=== PATIENT | male | born 1940 | race Caucasian/White ===

== ENCOUNTER 2016-10-09 09:49 | Day surgery (SDC) | payer MEDICARE, OTHER ==
[~2016-10-09] VITALS: Ht 175.3 cm; Wt 90.9 kg
[~2016-10-09 09:49] MED LIST: ATOR20TA PO; CALC1TAB PO; CARB1TAB20 PO; CYAN10009 PO; DROX300C PO; ESCI10TA47 PO; FINA5TAB2 PO; FURO20TA4 PO; METO50TA9 PO; OMEP20CA10 PO; OXYC1TAB11 PO; POTA-81 PO; RIVA20TA PO
--- OUTSIDE RECORDS SUMMARY | 2016-10-09 09:53 | XMS REPORT | Referral Summary ---
Author Author [facility] Organization [facility] Address Unknown Phone Unavailable Care Team Providers Care Survey Operations Director Name Role Phone Keesha Brooks Primary Care Physician [phone] Encounter [facility] [id number] Date(s): 08/23/16 - 08/23/16 [facility] [address] [place] [address] Discharge Diagnosis: Syncope, vasovagal Discharge Diagnosis: Syncope/Near syncope Discharge Disposition: 01-Home or Self Care Attending Physician: Rudy Chan MD Admitting Physician: Rudy Chan MD Vital Signs Most recent to 1 oldest [Reference Range]: Temperature Oral 36.9 degC [35.8-37.3 degC] (08/23/16 1:55 PM) Peripheral Pulse 88 bpm Rate [60-100 bpm] (08/23/16 3:57 PM) Respiratory Rate 19 br/min [14-20 br/min] (08/23/16 3:57 PM) Blood Pressure 133/82 mmHg [90-140/60-90 mmHg] (08/23/16 3:57 PM) SpO2 97 % (08/23/16 1:55 PM) Problem List No data available for this section Allergies, Adverse Reactions, Alerts No data available for this section Medications Caltrate mg, Oral, Daily, 0 Refill(s) Start Date: 08/23/16 Status: Ordered escitalopram Oral, Daily, 0 Refill(s) Start Date: 08/23/16 Status: Ordered ibuprofen 0 Refill(s) Start Date: 08/23/16 Status: Ordered Lasix Daily, 0 Refill(s) Start Date: 08/23/16 Status: Ordered levodopa 0 Refill(s) Start Date: 08/23/16 Status: Ordered Lipitor Oral, Daily, 0 Refill(s) Start Date: 08/23/16 Status: Ordered omeprazole Oral, Daily, 0 Refill(s) Start Date: 08/23/16 Status: Ordered Percocet 10/325 oral tablet 1 tabs, Oral, q6hr, as needed for pain, # 10 tabs, 0 Refill(s) Start Date: 08/23/16 Status: Ordered potassium acetate 0 Refill(s) Start Date: 08/23/16 Status: Ordered Proscar mg, Oral, Daily, 0 Refill(s) Start Date: 08/23/16 Status: Ordered Toprol-XL Oral, Daily, 0 Refill(s) Start Date: 08/23/16 Status: Ordered Xarelto Oral, 0 Refill(s) Start Date: 08/23/16 Status: Ordered Results Hematology Most recent to 1 oldest [Reference Range]: WBC [4.8-10.8 8.4 10*3/uL 10*3/uL] (08/23/16 2:44 PM) RBC [4.60-6.20] 3.60 *LOW* (08/23/16 2:44 PM) Hgb [14.0-18.0 11.1 gm/dL gm/dL] *LOW* (08/23/16 2:44 PM) Hct [42.0-52.0 %] 34.9 % *LOW* (08/23/16 2:44 PM) MCV [82.0-99.0 fL] 96.9 fL (08/23/16 2:44 PM) MCH [27.0-32.0 pg] 30.8 pg (08/23/16 2:44 PM) MCHC [32.0-36.0 31.8 gm/dL gm/dL] *LOW* (08/23/16 2:44 PM) RDW [11.5-14.5 %] 13.5 % (08/23/16 2:44 PM) Platelet [150-400 253 10*3/uL 10*3/uL] (08/23/16 2:44 PM) MPV [9.4-12.3 fL] 9.3 fL *LOW* (08/23/16 2:44 PM) Immature 0.2 % Granulocytes (08/23/16 2:44 PM) [0.0-1.0 %] Neutrophils [51-75 76 % %] *HI* (08/23/16 2:44 PM) Lymphocytes [20-46 11 % %] *LOW* (08/23/16 2:44 PM) Monocytes [4-11 %] 11 % (08/23/16 2:44 PM) Eosinophils [0-4 %] 1 % (08/23/16 2:44 PM) Basophils [0-2 %] 0 % (08/23/16 2:44 PM) Neutro Absolute 6.32 [1.90-7.00] (08/23/16 2:44 PM) Lymph Absolute 0.94 [0.80-3.30] (08/23/16 2:44 PM) [place]inn Absolute 0.95 [0.30-1.00] (08/23/16 2:44 PM) Eos Absolute 0.10 [0.00-0.50] (08/23/16 2:44 PM) Baso Absolute 0.03 [0.00-0.20] (08/23/16 2:44 PM) Chemistry Most recent to 1 oldest [Reference Range]: Sodium Lvl [136-144 131 mEq/L mEq/L] *LOW* (08/23/16 2:45 PM) Potassium Lvl 3.7 mEq/L [3.6-5.1 mEq/L] (08/23/16 2:45 PM) Chloride [99-109 97 mEq/L mEq/L] *LOW* (08/23/16 2:45 PM) CO2 [22-32 mEq/L] 23 mEq/L (08/23/16 2:45 PM) AGAP [3-20] 11 (08/23/16 2:45 PM) BUN [4-20 mg/dL] 10 mg/dL (08/23/16 2:45 PM) Glucose Lvl [70-100 92 mg/dL mg/dL] (08/23/16 2:45 PM) Creatinine Lvl 0.84 mg/dL [0.64-1.27 mg/dL] (08/23/16 2:45 PM) eGFR [>60] >60 1 (08/23/16 2:45 PM) Calcium Lvl 8.3 mg/dL [8.6-10.0 mg/dL] *LOW* (08/23/16 2:45 PM) Albumin Lvl [3.5-4.8 3.3 gm/dL gm/dL] *LOW* (08/23/16 2:45 PM) Total Protein 6.1 gm/dL [6.1-7.9 gm/dL] (08/23/16 2:45 PM) Globulin [1.9-4.3 2.8 gm/dL gm/dL] (08/23/16 2:45 PM) ALT [17-63 U/L] 6 U/L *LOW* (08/23/16 2:45 PM) AST [15-41 U/L] 16 U/L (08/23/16 2:45 PM) Alk Phos [26-104 67 U/L U/L] (08/23/16 2:45 PM) Bili Total [0.2-1.2 0.6 mg/dL 2 mg/dL] (08/23/16 2:45 PM) Troponin [<0.06 <0.05 ng/mL ng/mL] (08/23/16 2:45 PM) 1Result Comment: Multiply eGFR results by 1.21 for race. 2Result Comment: Naproxen, specifically the metabolite O-desmethylnaproxen, may cause spurious elevation in Total Bilirubin levels. Immunizations No data available for this section Procedures No data available for this section Social History Social History Type Response Smoking Status Never smoker Assessment and Plan No data available for this section
--- OUTSIDE RECORDS SUMMARY | 2016-10-09 09:53 | XMS REPORT ---
Author Author Prabhakar Brooks [facility] Address [address] 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 Active 35395401 Problem Depression F32.9 Active 70341440 Problem Alcoholism F10.20 Active 6192840 Problem Pain in right shoulder M25.511 Active 99364301 Problem Vitamin B12 deficiency E53.8 Active 482040697 Problem Hypokalemia E87.6 Active 70132936 Problem Chronic pain syndrome G89.4 Active 365597020 Problem Seizure disorder G40.909 Active 404587544 Problem Urinary incontinence, male, stress N39.3 Active 168370203 Problem 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 Active 970221879 Problem Parkinson's disease G20 Active 35145774 Problem GERD without esophagitis K21.9 Active 081859745 Problem Alzheimers disease with late onset G30.1 Active 60515759 Problem Essential hypertension I10 Active 39448402 Problem Dyslipidemia E78.5 Active 474688177 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
--- OUTSIDE RECORDS SUMMARY | 2016-10-09 09:54 | XMS REPORT | Continuity of Care Document ---
Author Author [facility] Organization [facility] Address Unknown Phone Unavailable Support Name Relationship Address Phone JOEY OBANDO MD Caregiver [address] [facility] [address] [place] [address] Unavailable CHILANGO NUNN MD Caregiver Unknown Unavailable LAUREN WEAVER Next Of Kin [address] [place] [address] Insurance Providers Guarantor Gautam Weaver Address [address] [place] [address] Email [email or web address] [email or web address] Medicare Policy Number [id number] Subscriber's Name Gautam Weaver Relationship 18 Self Payer [facility] Medicare [facility] Policy Number [id number] Subscriber's Name FransiscoJackelineGautam D Relationship 18 Self Advance Directives Directive Response Recorded Date/Time Dr Ordered Resuscitation Status Full Code, unverified 09/10/16 2:49pm Resuscitation Documents on File No 09/11/16 10:45am DPOA for Healthcare Only Yes 09/11/16 10:45am Living Will Yes 09/11/16 10:45am Problems No problem information available. Medications Current Home Medications Medication Dose Units Route Directions Days Qty Instructions Start Date Atorvastatin Calcium (Lipitor) 20 Mg Tablet 1 Tab Oral Bedtime Calcium Carbonate/Vitamin D3 (Caltrate 600 + D Tablet) 1 Each Tablet 1 Tab Oral Twice A Day 09/10/16 Carbidopa/Levodopa (Carbidopa-Levodopa 25-100 Tab) 1 Each Tablet 1 Tab Oral Three Times A Day 270 09/10/16 Cyanocobalamin (Vitamin B-12) (Vitamin B-12) 1,000 Mcg Tablet 1 Tab Oral Bedtime 30 Tablet 09/10/16 Droxidopa (Northera) 300 Mg Capsule 1 Tab Oral Three Times A Day 90 09/10/16 Escitalopram Oxalate 10 Mg Tablet 1 Tab Oral Daily 09/10/16 Finasteride (Proscar) 5 Mg Tablet 1 Tab Oral Bedtime 09/10/16 Furosemide 20 Mg Tablet 1 Tab Oral Daily 09/10/16 Metoprolol Succinate (Toprol Xl) 50 Mg Tab.er.24h 1 Tab Oral Daily 09/10/16 Omeprazole 20 Mg Capsule.dr 20 Mg Oral Before Breakfast Take 1 capsule, by mouth, one time a day (before breakfast). 09/10/16 Oxycodone/Acetaminophen (Percocet 7.5-325 Mg Tablet) 7.5-325 Tablet 2 Tab Oral Every 4 Hours as needed for Pain Take 1 tablet, by mouth, every 4 hours as needed for pain. 09/10/16 Potassium Chloride 20 Meq Tablet.er 20 Meq Oral Twice Daily With Meals Take 1 tablet, by mouth, two times a day with meals. 09/10/16 Rivaroxaban (Xarelto) 20 Mg Tablet 1 Tab Oral Daily 09/10/16 Social History Social History Problem Response Recorded Date/Time Onset Date Status Chewing Tobacco Status No 09/10/2016 11:39am Not Applicable Not Applicable Hx Substance Use No 09/10/2016 11:39am Not Applicable Not Applicable Hx Alcohol Use Y DRINKS WINE DAILY 09/10/2016 11:39am Not Applicable Not Applicable Has the pt used tobacco in the last 12 months Yes 09/10/2016 11:39am Not Applicable Not Applicable Query Response Start Date Stop Date Smoking Status Current every day smoker Hospital Discharge Instructions No hospital discharge instructions. Plan of Care Discharge Date 09/11/16 2:30pm Prescriptions See Medication Section Functional Status No functional status results. Allergies, Adverse Reactions, Alerts No known allergies. Immunizations Query Response on File Recorded Date/Time Hx Influenza Vaccination Y 2015-MAR. 09/10/16 11:39am Hx Pneumococcal Vaccination No 09/10/16 11:39am Hx Influenza Vaccination Y 2015-09/10/16 11:39am Vital Signs Acute Vital Signs Vital Response Date/Time Temperature (Fahrenheit) 97.0 deg F (96.8 - 99.1) 09/11/2016 1:32pm Temperature (Calculated Celsius) 36.43022 degrees C (36.0 - 37.3) 09/11/2016 1:32pm Temperature Source Temporal 09/11/2016 1:32pm Pulse Rate (adult) 70 bpm (60 - 100) 09/11/2016 2:05pm Respiratory Rate 11 breaths/min (10 - 20) 09/11/2016 2:05pm O2 Sat by Pulse Oximetry 97 % (90 - 100) 09/11/2016 2:05pm Oxygen Delivery Method Room Air 09/11/2016 2:05pm Oxygen Flow Rate 5.00 L/min 09/11/2016 1:20pm Blood Pressure 144/87 mm Hg 09/11/2016 2:05pm Blood Pressure Source Automatic Cuff 09/11/2016 2:05pm Height (Feet) 5 feet 09/11/2016 10:50am Height (Inches) 10.00 inches 09/11/2016 10:50am Weight (Kilograms) 90.900 kg 09/11/2016 10:50am Body Mass Index (BMI) 28.8 09/11/2016 10:50am Results Laboratory Results Test Name Result Units Flags Reference Collection Date/Time Result Date/ Time Comments Icterus Index < 2 0-7 09/11/2016 11:54am 09/11/2016 12:10pm Chemistry Specimen Hemolysis < 15 0-25 09/11/2016 11:54am 09/11/2016 12:10pm 0-25: Specimen Exhibited No Hemolysis. Turbidity < 20 0-20 09/11/2016 11:54am 09/11/2016 12:10pm Sodium Level 135 MEQ/L 134-144 09/11/2016 11:54am 09/11/2016 12:10pm Potassium Level 4.7 MEQ/L 3.6-5 09/11/2016 11:54am 09/11/2016 12:10pm Chloride Level 102 MEQ/L 98-107 09/11/2016 11:54am 09/11/2016 12:10pm Carbon Dioxide Level 30 MEQ/L 22-30 09/11/2016 11:54am 09/11/2016 12: 10pm Anion Gap 3 MEQ/L L 5-15 09/11/2016 11:54am 09/11/2016 12:10pm Blood Urea Nitrogen 12.0 MG/DL 9-20 09/11/2016 11:54am 09/11/2016 12: 10pm Creatinine 0.7 MG/DL L 0.8-1.5 09/11/2016 11:54am 09/11/2016 12:10pm BUN/Creatinine Ratio 17 RATIO 6-26 09/11/2016 11:54am 09/11/2016 12: 10pm Glomerular Filtration Rate Calc 109 09/11/2016 11:54am 09/11/2016 12:10pm Glucose Level 88 MG/DL 75-110 09/11/2016 11:54am 09/11/2016 12:10pm Calculated Osmolality 259 MOSM/KG L 261-280 09/11/2016 11:54am 2016 12:10pm Calcium Level 8.7 MG/DL 8.4-10.2 09/11/2016 11:54am 09/11/2016 12:10pm Hepatitis B Surface Antigen NEGATIVE NEGATIVE 09/11/2016 1:41pm 09/11 2:30pm Hepatitis C Antibody NEGATIVE NEGATIVE 09/11/2016 1:41pm 09/11/2016 2 :47pm Glucometer 100 mg/dL 75-110 09/11/2016 10:41am 09/11/2016 10:54am Procedures Procedure Status Date Provider(s) Cataract extraction, left Completed 09/11/16 CHILANGO NUNN MD Encounters Encounter Location Arrival/Admit Date Discharge/Depart Date Attending Provider Departed [facility] 09/11/16 9:58am 09/11/16 2: 30pm CHILANGO NUNN MD
--- OUTSIDE RECORDS SUMMARY | 2016-10-09 09:54 | XMS REPORT ---
Author Author Prabhakar Brooks [facility] Address [address] 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 Active 30727644 Problem Depression F32.9 Active 74378944 Problem Alcoholism F10.20 Active 9665664 Problem Pain in right shoulder M25.511 Active 74784323 Problem Vitamin B12 deficiency E53.8 Active 977161649 Problem Hypokalemia E87.6 Active 37704048 Problem Chronic pain syndrome G89.4 Active 112305152 Problem Seizure disorder G40.909 Active 350623749 Problem Urinary incontinence, male, stress N39.3 Active 951511115 Problem 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 Active 366706315 Problem Parkinson's disease G20 Active 87997538 Problem GERD without esophagitis K21.9 Active 782317247 Problem Alzheimers disease with late onset G30.1 Active 85154776 Problem Essential hypertension I10 Active 27360139 Problem Dyslipidemia E78.5 Active 451503739 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
--- OUTSIDE RECORDS SUMMARY | 2016-10-09 09:54 | XMS REPORT ---
Author Author Prabhakar Brooks [facility] Address [address] 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 Active 32211300 Problem Depression F32.9 Active 79686385 Problem Alcoholism F10.20 Active 9747532 Problem Pain in right shoulder M25.511 Active 02321475 Problem Vitamin B12 deficiency E53.8 Active 870893143 Problem Hypokalemia E87.6 Active 59280493 Problem Chronic pain syndrome G89.4 Active 905678551 Problem Seizure disorder G40.909 Active 489702713 Problem Urinary incontinence, male, stress N39.3 Active 255881582 Problem 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 Active 100037340 Problem Parkinson's disease G20 Active 59528912 Problem GERD without esophagitis K21.9 Active 918405920 Problem Alzheimers disease with late onset G30.1 Active 88823295 Problem Essential hypertension I10 Active 69041407 Problem Dyslipidemia E78.5 Active 287923960 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
--- OUTSIDE RECORDS SUMMARY | 2016-10-09 09:54 | XMS REPORT ---
Author Author Prabhakar Brooks [facility] Address [address] 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 Active 08176070 Problem Depression F32.9 Active 03304240 Problem Alcoholism F10.20 Active 6033731 Problem Pain in right shoulder M25.511 Active 27536505 Problem Vitamin B12 deficiency E53.8 Active 988133142 Problem Hypokalemia E87.6 Active 65788157 Problem Chronic pain syndrome G89.4 Active 672541110 Problem Seizure disorder G40.909 Active 492609471 Problem Urinary incontinence, male, stress N39.3 Active 618123251 Problem 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 Active 590406706 Problem Parkinson's disease G20 Active 52347267 Problem GERD without esophagitis K21.9 Active 356692514 Problem Alzheimers disease with late onset G30.1 Active 10202671 Problem Essential hypertension I10 Active 53342336 Problem Dyslipidemia E78.5 Active 663721212 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
--- OUTSIDE RECORDS SUMMARY | 2016-10-09 09:55 | XMS REPORT ---
Author Author Prabhakar Brooks [facility] Address [address] 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 Active 83926448 Problem Depression F32.9 Active 52726530 Assessment Skin tear of upper arm without complication, right, subsequent encounter S41.111D Aug, Active 514814065 Problem Alcoholism F10.20 Active 5453092 Problem Pain in right shoulder M25.511 Active 76467132 Problem Vitamin B12 deficiency E53.8 Active 982702275 Problem Hypokalemia E87.6 Active 00395200 Problem Chronic pain syndrome G89.4 Active 084256571 Problem Seizure disorder G40.909 Active 656897742 Problem Urinary incontinence, male, stress N39.3 Active 390375398 Assessment Syncope, unspecified syncope type R55 Aug, Active 477367042 Problem 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 Active 951036152 Problem Parkinson's disease G20 Active 02138259 Problem GERD without esophagitis K21.9 Active 832361265 Problem Alzheimers disease with late onset G30.1 Active 37347501 Problem Essential hypertension I10 Active 47362881 Problem Dyslipidemia E78.5 Active 545964155 Problem Atherosclerotic heart disease of [place] coronary artery without angina pectoris I25.10 Active 8315084980650 ALLERGIES Substance Reaction Event Type Date Status Namenda diarrhea Drug Allergy Aug, Active SOCIAL HISTORY No smoking Hx information available PLAN OF CARE VITAL SIGNS Height 69 in 2016-09-19 Temperature 98.0 degrees Fahrenheit 2016-09-19 Blood pressure systolic 130 mm Hg 2016-09-19 Blood pressure diastolic 76 mm Hg 2016-09-19 MEDICATIONS Medication Instructions Dosage Frequency Start Date End Date Duration Status Omeprazole 20 MG Orally BID 1 capsule 12h November, 30 days Active Northera 300 MG Orally Three times a day 1 capsule 8h 30 day(s) Active Calcium + D 600-200 MG-UNIT Orally Once a day 1 tablet with food 24h 30 day(s) Active Nitrostat 0.4 MG Sublingual every 5 mins as needed not to exceed 3 doses 1 tablet 30 days Active Lexapro 10 MG Orally Once a day 1 tablet 24h Feb, Active Metoprolol Succinate ER 50MG TAKE 1 TABLET DAILY Active Furosemide 20MG TAKE 1 TABLET DAILY Active Ibuprofen 600 MG Orally every 6 hours as needed 1 tablet 30 day(s) Active Vitamin B-12 1000 MCG Orally Once a day 1 tablet 24h Active Finasteride 5 MG 1 TABLET ONCE A DAY ORALLY 90 DAYS Active Atorvastatin Calcium 20 MG Orally Once a day 1 tablet 24h 14 days Active Finasteride 5MG TAKE 1 TABLET DAILY Active Vitamin D 2000 UNIT Orally BID 2 caps 12h Active Percocet 7.5-325 MG Orally every 4 hrs 2 tablets as needed 4h Apr, Active Xarelto 20 mg ORALLY daily 1 TABLET 24h Active Carbidopa-Levodopa 25-100 MG Orally Three times a day 1 tablet 8h Active Klor-Con M20 20MEQ TAKE 1 TABLET THREE TIMES A DAY Active RESULTS No Results PROCEDURES Procedure Date Ordered Related Diagnosis Body Site OFFICE VISITEST PT Sep 19, 2016 IMMUNIZATIONS No Known Immunizations
--- OUTSIDE RECORDS SUMMARY | 2016-10-09 09:55 | XMS REPORT | Continuity of Care Document ---
Author Author [facility] Address Unknown Phone Unavailable Allergies Active Description Code Type Severity Reaction Onset Reported/Identified Relationship to Patient Clinical Status Yes IODINE CONTRAST Drug Allergy N/A N/A Medications Problems Procedures Results Encounters ACCT No. Visit Date/Time Discharge Status Pt. Type Provider Facility Loc./Unit Complaint [id number] 08/27/2016 15:26:47 08/27/2016 15:26:47 DIS Outpatient [id number] 08/27/2016 10:27:09 08/27/2016 10:27:09 DIS Outpatient [id number] 08/27/2016 10:09:07 08/27/2016 10:09:07 DIS Outpatient [id number] 08/27/2016 09:33:34 08/27/2016 09:33:34 DIS Outpatient [id number] 08/26/2016 12:35:02 08/26/2016 12:35:02 DIS Outpatient [id number] 08/26/2016 12:35:01 08/26/2016 12:35:01 DIS Outpatient [id number] 08/22/2016 16:01:17 08/22/2016 16:01:17 DIS Outpatient [id number] 08/20/2016 12:53:06 08/20/2016 12:53:06 DIS Outpatient [id number] 03/19/2016 04:01:55 03/19/2016 04:01:55 ACT Outpatient [id number] 03/19/2016 03:58:17 03/19/2016 03:58:17 ACT Outpatient [id number] 03/19/2016 03:58:09 03/19/2016 03:58:09 ACT Outpatient [id number] 03/19/2016 03:58:07 03/19/2016 03:58:07 ACT Outpatient [id number] 03/19/2016 03:57:55 03/19/2016 03:57:55 ACT Outpatient [id number] 03/19/2016 03:57:54 03/19/2016 03:57:54 ACT Outpatient [id number] 03/19/2016 01:41:57 03/19/2016 01:41:57 ACT Outpatient [id number] 03/18/2016 19:20:14 03/18/2016 19:20:14 ACT Outpatient [id number] 03/18/2016 19:15:12 03/18/2016 19:15:12 ACT Outpatient [id number] 03/18/2016 19:14:55 03/18/2016 19:14:55 ACT Outpatient [id number] 03/18/2016 19:14:50 03/18/2016 19:14:50 ACT Outpatient [id number] 03/18/2016 19:14:11 03/18/2016 19:14:11 ACT Outpatient [id number] 03/18/2016 19:14:08 03/18/2016 19:14:08 ACT Outpatient [id number] 08/16/2015 10:16:25 08/16/2015 10:16:27 DIS Outpatient [id number] 08/15/2015 08:33:01 08/15/2015 08:33:03 DIS Outpatient [id number] 08/14/2015 10:53:19 08/14/2015 10:53:20 DIS Outpatient [id number] 08/14/2015 09:46:57 08/14/2015 09:46:57 DIS Outpatient [id number] 08/14/2015 09:46:54 08/14/2015 09:46:55 DIS Outpatient [id number] 08/08/2015 12:21:51 08/08/2015 12:21:56 DIS Outpatient [id number] 08/01/2015 10:53:59 08/01/2015 10:54:00 DIS Outpatient [id number] 07/31/2015 12:16:13 07/31/2015 12:16:16 DIS Outpatient [id number] 07/31/2015 12:02:39 07/31/2015 12:02:41 DIS Outpatient [id number] 07/31/2015 11:29:44 07/31/2015 11:29:46 DIS Outpatient [id number] 07/31/2015 11:23:08 07/31/2015 11:23:10 DIS Outpatient [id number] 07/31/2015 10:43:48 07/31/2015 10:43:50 DIS Outpatient [id number] 07/31/2015 10:43:38 07/31/2015 10:43:40 DIS Outpatient [id number] 07/31/2015 10:43:12 07/31/2015 10:43:15 DIS Outpatient [id number] 07/31/2015 10:40:57 07/31/2015 10:41:02 DIS Outpatient [id number] 07/31/2015 10:39:35 07/31/2015 10:39:37 DIS Outpatient [id number] 07/19/2015 10:15:08 07/19/2015 10:15:09 DIS Outpatient [id number] 07/19/2015 10:11:24 07/19/2015 10:11:26 DIS Outpatient [id number] 04/21/2015 09:52:09 04/21/2015 23:59:59 CLS Outpatient [id number] 04/21/2015 09:52:07 04/21/2015 23:59:59 CLS Outpatient [id number] 04/21/2015 09:52:06 04/21/2015 23:59:59 CLS Outpatient [id number] 04/21/2015 09:52:05 04/21/2015 23:59:59 CLS Outpatient [id number] 04/21/2015 09:52:01 04/21/2015 23:59:59 CLS Outpatient [id number] 04/21/2015 09:51:00 04/21/2015 23:59:59 CLS Outpatient [id number] 04/21/2015 09:50:02 04/21/2015 23:59:59 CLS Outpatient [id number] 04/21/2015 09:49:58 04/21/2015 23:59:59 CLS Outpatient [id number] 04/21/2015 09:52:08 04/21/2015 09:52:08 DIS Outpatient [id number] 04/21/2015 09:51:05 04/21/2015 09:51:05 DIS Outpatient [id number] 09/02/2016 16:08:25 DIS Outpatient [id number] 08/27/2016 12:51:38 Document Registration [id number] 08/27/2016 11:33:26 Document Registration [id number] 08/27/2016 10:59:18 DIS Outpatient [id number] 08/27/2016 09:41:00 Document Registration [id number] 03/18/2016 17:44:00 Document Registration [id number] 03/18/2016 17:41:40 Document Registration [id number] 03/18/2016 16:04:34 Document Registration [id number] 03/18/2016 16:04:01 Document Registration [id number] 03/18/2016 16:03:33 Document Registration [id number] 03/18/2016 15:59:00 Document Registration [id number] 08/15/2015 09:17:30 DIS Outpatient [id number] 07/31/2015 11:32:07 DIS Outpatient [id number] 07/31/2015 11:23:20 DIS Outpatient [id number] 07/31/2015 11:06:00 Document Registration [id number] 07/31/2015 11:05:00 Document Registration [id number] 07/31/2015 10:46:47 DIS Outpatient [id number] 07/31/2015 10:39:26 DIS Outpatient [id number] 07/31/2015 10:39:08 DIS Outpatient [id number] 07/18/2015 08:16:15 DIS Outpatient
[2016-10-09 09:58] VITALS: BP 135/95; PULSE 84; RESP 16; TEMP 98.5; O2SAT 96; Ht 175.3 cm; Wt 90.9 kg
[2016-10-09] MEDS: MOXIFLOXACIN 0.5% EYE DROPS 3ml RIGHT EYE SCH ×3 (10:21→10:41)
[2016-10-09] MEDS: NEPAFENAC 0.1% EYE DROPS 3ml RIGHT EYE SCH ×3 (10:21→10:41)
[2016-10-09] MEDS: CYCLOPENTOLATE 2% EYE DROPS 2ml RIGHT EYE SCH ×3 (10:21→10:41)
[2016-10-09] MEDS: TROPICAMIDE 1% EYE DROPS 3ml RIGHT EYE SCH ×3 (10:21→10:41)
[2016-10-09] MEDS: PROPARACAINE 0.5% EYE DROPS 15ml RIGHT EYE SCH ×3 (10:22→10:42)
[2016-10-09] MEDS: PHENYLEPHRINE 2.5% EYE DROPS 5ml RIGHT EYE SCH ×2 (10:33→10:42)
[2016-10-09] MEDS ORDERED: PROPOFOL 500mg 50 ML IV ONE (11:21)
--- NOTE | 2016-10-09 11:32 | ANESPREOP ---
Anesthesia Record Date and Time DATE: 10/09/16 TIME: 11:31 Pre-Op Diagnosis cataract od Proposed Surgical Procedure PE WITH IOL OD NPO since: 0500 Allergies: Coded Allergies: No Known Allergies (Unverified , 10/09/16) Ht/Wt/BMI Height: 5 ' 9.00 " Weight: 90.900 kg BMI: 29.6 kg/m2 Vital Signs Date Time Temp Pulse Resp B/P Pulse Ox O2 Delivery O2 Flow Rate FiO2 10/09/16 09:58 98.5 84 16 135/95 96 Room Air Medications Inpatient Medications Current Medications Medications (Trade) Dose Ordered Sig/Lukasz Start Time Stop Time Status Last Admin Dose Admin Lactated Ringer's (Lactated Ringers) 1,000 ml @ 50 mls/hr Q20H 10/09/16 16:00 10/09/16 10:32 50 MLS/HR Cyclopentolate HCl (Cyclogyl 2%) 1 drop Q5M 10/09/16 16:00 10/09/16 16:11 10/09/16 10:41 1 DROP Tropicamide (Mydriacyl 1% Eye Drops) 1 drop Q5M 10/09/16 16:00 10/09/16 16:11 10/09/16 10:41 1 DROP Proparacaine HCl (Alcaine 0.5% Eye Drops) 1 drop Q5M 10/09/16 16:00 10/09/16 16:11 10/09/16 10:42 1 DROP Phenylephrine HCl (Yaakov-Synephrine 2.5% Eye Drops) 1 drop Q5M 10/09/16 16:00 10/09/16 16:11 10/09/16 10:42 1 DROP Tetracaine HCl (Tetracaine 0.5% Eye Drops) 1 drop PRN PRN 10/09/16 16:00 Moxifloxacin HCl (Vigamox) 1 drop Q5M 10/09/16 16:00 10/09/16 16:11 10/09/16 10:41 1 DROP Nepafenac (Nevanac 0.1% Eye Drops) 1 drop Q5M 10/09/16 16:00 10/09/16 16:11 10/09/16 10:41 1 DROP Atorvastatin Calcium (Lipitor) 20 Mg Tablet, 1 TAB PO HS, (Reported) Last Taken: on 10/08/16 1600 Calcium Carbonate/Vitamin D3 (Caltrate 600 + D Tablet) 1 Each Tablet, 1 TAB PO BID, (Reported) Last Taken: on 10/08/16 0800 Carbidopa/Levodopa (Carbidopa-Levodopa 25-100 Tab) 1 Each Tablet, 1 TAB PO TID, (Reported) Last Taken: on 10/09/16 0700 Cyanocobalamin (Vitamin B-12) (Vitamin B-12) 1, 000 Mcg Tablet, 1 TAB PO HS, (Reported) Last Taken: on 10/08/16 1600 Droxidopa (Northera) 300 Mg Capsule, 1 TAB PO TID, (Reported) Last Taken: on 10/09/16 0700 Escitalopram Oxalate (Escitalopram Oxalate) 10 Mg Tablet, 1 TAB PO DAILY, (Reported) Last Taken: on 10/08/16 1200 Finasteride (Proscar) 5 Mg Tablet, 1 TAB PO HS, (Reported) Last Taken: on 10/08/16 0700 Furosemide (Furosemide) 20 Mg Tablet, 1 TAB PO DAILY, (Reported) Last Taken: on 10/08/16 0700 Metoprolol Succinate (Toprol Xl) 50 Mg Tab.er.24h, 1 TAB PO DAILY, (Reported) Last Taken: on 10/09/16 0700 Omeprazole (Omeprazole) 20 Mg Capsule.dr, 20 MG PO ACB, (Reported) Take 1 capsule, by mouth, one time a day (before breakfast). Last Taken: on 10/08/16 0700 Oxycodone HCl/Acetaminophen (Percocet 7.5-325 mg Tablet) 7.5-325 Tablet, 2 TAB PO Q4H PRN for PAIN, (Reported) Take 1 tablet, by mouth, every 4 hours as needed for pain. Last Taken: on 10/08/16 2300 Potassium Chloride (Potassium Chloride) 20 Meq Tablet.er, 20 MEQ PO BIDWM, (Reported) Take 1 tablet, by mouth, two times a day with meals. Last Taken: on 10/08/16 0700 Rivaroxaban (Xarelto) 20 Mg Tablet, 1 TAB PO DAILY, (Reported) Last Taken: on 10/04/16 1800 Currently on Beta Mylene: Yes Beta Mylene Last Taken: METOPROLOL AT 0730 ON 10/09/16 Medical/Surgical History Anesthesia PMH: Reports: *Hypertension, Cardiac Arrythmia (chronic atrial fib) , Glaucoma, Murmur, Reflux, Seizures (ONE IN 2015, AND ONE 2 WEEKS SEESDR. OBANDO), Denies: Anesthesia Reactions (NO AIRWAY ISSUES), Cancer, Clotting Problems, Malignant Hyperthermia, Sleep Apnea Smoking Status: Former smoker # of Packs per Day: 1/2 # of Years: 25 Use Chewing Tobacco?: No Second Hand Exposure: No Substance Use Type: does not use Alcohol Intake: rarely Past Surgical History Orthopedic Surgeries: Yes - RTR Abdominal Surgeries: Yes - GASTRIC BIPASS, GALLBLADDER Genitourinary Surgeries: Cardiac Surgeries: Yes - QUAD. BIPASS 20 YEARS AGO Endocrine Surgeries: Reproductive Surgeries: Neurological Surgeries: Ear Surgeries: Nose Surgeries: Throat Surgeries: Yes - TONSILLECTOMY Other Surgeries: Yes - QUAD. BIPASS 20 YEARS AGO Anesthesia Adverse Reactions: FOUND none Pertinent Findings EKG Rhythm: Sinus Rhythm Physical Exam Respiratory: Lungs clear Cardiovascular: FOUND Irregularly irregular, FOUND Systolic murmur Airway Assessment Mallampati Score: II TMD: 2 Fingerbreadths Neck Extension: Fair Teeth: Chipped Teeth/Crowns Overall Assessment: May Be Diff Intubation ASA: 3 Plan Anesthesia Plan: TIVA, LMA Discussion Discussed risks/options/alternatives of anesthesia and questions answered. Patient consents. Nursing pain assessment noted. Present: Family Member Attestation Statement Prior to the delivery of any anesthetic medication, I examined the patient, developed the plan, obtained the patient's consent and discussed the risk and benefits of the procedure with the patient/guardian. STEFAN ESPARZA I SILK CONDITIONER Oct 09, 2016 11:32
[2016-10-09 12:44] VITALS: BP 148/92; PULSE 78; RESP 12; TEMP 96.8; O2SAT 96
[2016-10-09 12:59] VITALS: BP 146/101; PULSE 78; RESP 15; O2SAT 96
[2016-10-09 13:14] VITALS: BP 151/84; PULSE 77; RESP 19; O2SAT 95
--- NOTE | 2016-10-09 13:47 | ANESPO ---
Post-Op Note Date 10/09/16 Time: 13:46 Status Pt Participated in Evaluation: Pt participated in person Vital Signs Date Time Temp Pulse Resp B/P Pulse Ox O2 Delivery O2 Flow Rate FiO2 10/09/16 13:14 77 19 151/84 95 Room Air 10/09/16 12:44 96.8 Respiratory Function: Airway patent, Regular respirations Cardiovascular Function: Regular pulse Mental Status: Alert/oriented Pain Level Intensity: 0 Hydration: Taking po fluids, IV infusing Complications during Recovery None apparent Post-Anesthesia Notes pt. allie. well Follow-Up Instructions Instructions Per Surgeon Additional Information none STEVE MCDONNELL CRNA Oct 09, 2016 13:47
[2016-10-09] MEDS ORDERED: MOXIFLOXACIN 0.5% EYE DROPS 3ml BOTH EYES ONE (14:00)
[2016-10-09] MEDS ORDERED: PROPARACAINE 0.5% EYE DROPS 15ml OP ONE (14:00)
[2016-10-09] MEDS ORDERED: NEPAFENAC 0.1% EYE DROPS 3ml OP ONE (14:00)
[2016-10-09] MEDS ORDERED: NS FOR INJ. 20 ML VIAL INJ ONE (14:00)
[2016-10-09] MEDS ORDERED: LIDOCAINE 1% (10mg/ml) 30ml SDV IJ ONE (14:00)
[2016-10-09] MEDS ORDERED: VANCOMYCIN 500 MG INJECTION IR ONE (14:00)
[2016-10-09] MEDS ORDERED: CYCLOPENTOLATE 2% EYE DROPS 2ml BOTH EYES ONE (14:00)
[2016-10-09] MEDS ORDERED: BRIMONIDINE 0.2% EYE DROPS 5ml BOTH EYES ONE (14:00)
[2016-10-09] MEDS ORDERED: TROPICAMIDE 1% EYE DROPS 3ml OP ONE (14:00)
[2016-10-09] MEDS ORDERED: TETRACAINE 0.5% EYE DROPS 4ml BOTTLE OP ONE (14:00)
[2016-10-09] MEDS ORDERED: LIDOCAINE 1% (10mg/ml) 2ml SDV INJ ONE (16:00)
[2016-10-09] MEDS ORDERED: LR 1,000 ML IV SCH (16:00)
[2016-10-09] MEDS ORDERED: TETRACAINE 0.5% EYE DROPS 4ml BOTTLE RIGHT EYE PRN (16:00)
--- NOTE | 2016-10-14 11:25 | OPNOTEF ---
DATE OF PROCEDURE 10/09/2016 PREOPERATIVE DIAGNOSIS Cataract, right eye. POSTOPERATIVE DIAGNOSIS Cataract, right eye. PROCEDURE Phacoemulsification with implantation of 14.0 diopter intraocular lens model SA60AT, right eye. ANESTHESIA General monitored by Nicola Hagen CRNA. SURGEON Otis Nguyen MD PROCEDURE IN DETAIL The patient came to the [facility] and was escorted to the preanesthesia area where the appropriate monitoring, eyedrops, and topical anesthetic were administered. The patient was then taken into the operating room and placed under general anesthesia and then the eye was prepped and draped in the standard sterile manner for ophthalmic surgery. A lid speculum was placed between the lids and the eye was irrigated with 5% Povidine iodine solution, followed by copious irrigation with sterile balanced salt solution after three minutes. The eye surgery began with the initial side port incision through the peripheral clear cornea. Lidocaine preservative free 1% was injected into the anterior chamber. Viscoelastic was exchanged for aqueous. A clear cornea incision was made just anterior to the vascular arcade with a steel keratome blade. A continuous curvilinear anterior capsulorrhexis was performed, followed by hydrodissection and hydrodelineation of the cataract. The phacoemulsification tip was then inserted through the incision into the anterior chamber, and the nucleus of the cataract was emulsified. The remaining cortical material was then aspirated and the posterior capsule was cleaned and polished. A posterior chamber intraocular lens was then implanted into the capsular bag with viscoelastic support. The viscoelastic was then removed from the eye by aspiration. The clear cornea incision was inspected to ensure a water tight seal. The lid speculum was removed. Vigamox, Nevanac, and Brimonidine eyedrops were instilled onto the eye and an eye shield was taped over the eye. The general anesthesia was reversed. Once the patient was extubated, he went to the recovery area and was dismissed to the responsible green party with postoperative instructions and a planned follow-up visit. DERRICK
== END 2016-10-09 14:04 | disposition home or self-care (01) ==
LOC: NSC 09:49
PROVIDERS: ATTEND Ophthalmology
DX: H25.811 Combined forms of age-related cataract, right eye (principal); Z96.1 Presence of intraocular lens; G20 Parkinson's disease; E78.5 Hyperlipidemia, unspecified; N40.0 Benign prostatic hyperplasia without lower urinary tract symptoms; I25.10 Atherosclerotic heart disease of native coronary artery without angina pectoris; K21.9 Gastro-esophageal reflux disease without esophagitis; Z95.1 Presence of aortocoronary bypass graft; Z79.02 Long term (current) use of antithrombotics/antiplatelets; Z79.1 Long term (current) use of non-steroidal anti-inflammatories (NSAID); Z79.899 Other long term (current) drug therapy
CPT/HCPCS: 66984; A9270; C1780; J3370; J7120